=== PATIENT | male | born 1960 | race Caucasian/White ===

== ENCOUNTER 2018-10-06 06:56 | Emergency (ER) | payer SELFPAY ==
--- NOTE | 2018-10-06 07:49 | ED Physician Documentation ---
Cardiopulmonary Resuscitation - HISTORIAN Historian: patient, paramedics - HPI Chief Complaint: CPR Additional Information: pt adm [id number] CPR in progress. hx rev pt in shower w/ collapsed call to [phone] found pt in asystole on EMS arrival. pt intubated 7.0 tube 16 ga needle rt ext jugular using AUTO PULSE. PT REMAINED IN ASYSTOLE-HE HAD BEEN GIVEN 3 EPI. GYROSCOPIC INSTRUMENT MECHANIC ED. he remained in asystole no pulse found xc slight w auto pulse. he was given epi at 0700 plus amiodarone 300 at 703-still no response code called 0706. subsequent hx per EMS wass that the pt was DDNR but reason obscure. senior software test engineer called-await family arrival. Witnessed Arrest?: Yes CPR Initiated Prior to MD Arrival?: No - INITIAL FINDING Mentation: unresponsive - TREATMENT INITIATED GYROSCOPIC INSTRUMENT MECHANIC Oxygen: intubated (7.0 per EMS at scene-tube confirmed in place) - MEDICATIONS GIVEN GYROSCOPIC INSTRUMENT MECHANIC How Many Doses of Epinephrine?: 4 Amiodorone Given?: Yes - ROS CONST: other (arrived in asystole-persisted until code called after consul w/-pt prev DNR) EYES/ENT: other (PUPILS FIXED DILATED) - PAST HX Past History: cardiac disease - SOCIAL HX Smoking History: other (UNSURE) - FAMILY HX Family History: No Chest Pain Physical Exam - EXAM General Appearance: other (SEE PREV NOTE--PT ARR IN ASTOLE) Neuro: other (PT ARRIVED IN ASYSTOLE REMAINED-EMS FOUND ASYSTOLE ON SCENE ARRIVAL) Discharge Clincal Impression: ON ARRIVAL-ASYSTOLE, CPR UNSUCESSFUL Referrals: Primary Doctor,No [Primary Care Provider] - 2 Days Comments: SERVER PROGRAMMER CALLED Decision to Admit: NO Decision Time: 16:35
[2018-10-06] MEDS ORDERED: ASPIRIN 81 MG CHEW TAB PO ONE (07:58)
[2018-10-06] MEDS ORDERED: NITROGLYCERIN 0.4 MG TAB.SUBL SL PRN (07:58)
[2018-10-06] MEDS ORDERED: SODIUM BICARBONATE 50 MEQ/50 ML SYRINGE ONE (08:23)
[2018-10-06] MEDS ORDERED: EPINEPHrine 0.1 MG/ML DISP.SYRIN IVP ONE (08:23)
[2018-10-06] MEDS ORDERED: AMIODARONE HCL 150 MG/3ML VIAL ONE (08:24)
[2018-10-06] MEDS ORDERED: RED CRASH CART TAGS 1 EACH MC ONE (08:24)
== END 2018-10-06 10:49 ==
LOC: ED 07:02 → EDBD 07:02 → ED 10:49
DX: I46.9 Cardiac arrest, cause unspecified (principal)
CPT/HCPCS: 96372; 99282; 99284